=== PATIENT | male | born 1995 | race Caucasian/White ===

== ENCOUNTER 2024-06-19 12:31 | Emergency (ER) | payer OTHER, SELFPAY ==
[2024-06-19 12:34] VITALS: BP 142/62; PULSE 72; RESP 16; TEMP 36.6; O2SAT 100
--- OUTSIDE RECORDS SUMMARY | 2024-06-19 12:38 | XMS_ITS | Clinical Summary ---
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 Assessment & Plan (11/12/2019 3:44 PM CDT): - abnormal protrusion of proximal tibia on R leg - reassured pt this is likely due to healing reaction from his accident - pt refused xray to evaluate - f/u prn Urine frequency 11/12/2019 Assessment & Plan (11/12/2019 3:45 PM CDT): - neg UA, send urine for cx - check labs for STI - will treat empirically for UTI - f/u if sx not improved Cigarette nicotine dependence without complicati on 11/30/2018 Assessment & Plan (12/12/2018 3:15 PM CDT): Smoking 1ppd Not interested in quitting Counseled on cessation >3 minutes Assessment & Plan (11/30/2018 3:29 PM CDT): Smoking 1ppd Not interested in quitting Counseled on cessation >3 minutes Encounters Date Type Department Care Team Description 05/04/2024 8:00 PM CDT - 05/04/2024 9:34 PM CDT Emergency [address] [address] Discharge Disposition: Left without being seen from Last 3 Months Immunizations Immunization Administration Dates Next Due DTP / HiB 06/20/1996,02/18/1995,1994 Hep B, Adolescent or Pediatric 06/20/1996,1994,1994 MMR 06/20/1996 OPV 06/20/1996,02/18/1995,1994 Tdap 11/26/2018 Family History Medical History Relation Name Comments Epilepsy Father Diabetes Sister Relation Name Status Comments Brother Alive Father Alive Mother Alive Sister Alive Social History Tobacco Use Types Packs/Day Years Used Date Smoking Tobacco: Every Day Cigarettes Tobacco Cessation:Ready to Q uit: Yes; Counseling Given: Yes Alcohol Use Standard Drinks/Week Comments Not Currently 0 (1 standard drink = 0.6 oz pur e alcohol) PHQ-2 Answer Date Recorded PHQ-2 Score 0 11/30/2018 Personal Safety Answer Date Recorded Have you ever been in or are you currently in a harmful physical or emotional relationship or is someone making you feel afraid or unsafe? 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 Gender Identity Not on file Sexual Orientation Not on file Obstetrics History Last Filed Vital Signs Vital Sign Reading Time Taken Comments Blood Pressure 107/75 05/04/2024 8:06 PM CDT Pulse 53 05/04/2024 8:06 PM CDT Temperature 36.5 C (97.7 F) 05/04/2024 8:06 PM CDT Respiratory Rate 14 05/04/2024 8:06 PM CDT Oxygen Saturation 99% 05/04/2024 8:06 PM CDT Inhaled Oxygen Concentration - - Weight 57.6 kg (127 lb) 05/04/2024 8:06 PM CDT Height 167.6 cm (5' 6 ) 11/12/2019 2:36 PM CDT Body Mass Index 20.5 11/12/2019 2:36 PM CDT Plan of Treatment Not on file Insurance ANTHEM ACCESS CHOICE AETNA [facility] Care Teams Elevator Serviceman Relationship Specialty Start Date End Date Unknown, Notinfile PCP - General 05/03/24
--- OUTSIDE RECORDS SUMMARY | 2024-06-19 12:38 | XMS_ITS | Continuity of Care Document ---
Author Organization [facility] Address [id number] [place] [address] [place] [address] Phone Care Team Providers Care Tester Waste Disposal Leakage Name Role Phone Hatch OD, Vicente Unavailable Unavailable Procedures Procedure Date Eye Exam & Treatment Refraction Eye Exam & Treatment Advance Directives Directive Yes / No Effective Date File Name No Information Encounters Encounter Description Practice Location Reason(s) For Visit Diagnoses Date Provider Providers Copied on Encounter [facility], [address] [place] [address] [address], [place], [place], [id number], tel:[phone] [facility] No Information [address] Hatch OD Vicente. [address], [place], [place], [facility], [place]. tel:[phone] [facility], [address] [place] [address] [address], [place], [place], [id number], tel:[phone] [facility] No Information 0[address] Last Monica. [address], [place], [place], [facility], [place]. tel:[phone] Family History Family Member Type Diagnosis Age At Onset No Information Payers Payer name Insurance type Covered green party ID Authoriza tion(s) Medicaid [facility] [id number] Social History Type Description Quantity Date Captured Comments Sex Male Smoking Status No Information Chief Complaint And Reason For Visit No Information Reason For Referral Reason For Referral No Information History Of Present Illness Encounter Date Complaint History Of Prese nt Illness No Information Functional Status Date Functional Assessmen t No Information Instructions Date Instruction Additional Infor mation No Information Assessments Type Assessment Date No Information Patient Care Teams Name Effective Dates (start - stop) Status Members No Information
--- OUTSIDE RECORDS SUMMARY | 2024-06-19 12:38 | XMS_ITS | Referral Summary ---
Author Organization [facility] at the Medical Office Building Address [address] [place] [address] Care Team Providers Care Multi Craft Maintenance Technician Name Role Phone Unknown, Notinfile Primary Care Provider Unavail able Encounters Date Type Department Care Team Description 05/04/2024 8:00 PM CDT - 05/04/2024 9:34 PM CDT Emergency [address] [address] Discharge Disposition: Left without being seen from Last 3 Months Allergies No known active allergies Medications No [...] in quitting Counseled on cessation >3 minutes Immunizations Immunization Administration Dates Next Due DTP / HiB 06/20/1996,02/18/1995,1994 Hep B, Adolescent or Pediatric 06/20/1996,1994,1994 MMR 06/20/1996 OPV 06/20/1996,02/18/1995,1994 Tdap 11/26/2018 Social History Tobacco Use Types Packs/Day Years [...] on file 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
[2024-06-19 13:01] LABS: Basophils Percent Auto 0.1 % (0.2-1.2); Eosinophils Percent Auto 0.1 % (0-4.4); Hematocrit 46.2 % (42.0-52.0); Hemoglobin 15.6 g/dL (14.0-18.0); Immature Granulocyte Absolute 0.08 K/mm3 (0.00-0.031); Immature Granulocyte Percent A 0.5 % (0-0.5); Lymphocytes Absolute Auto 1.17 K/mm3 (0.9-3.2); Mean Corpuscular HGB Conc 33.8 g/dl (32-36); Mean Corpuscular Hemoglobin 28.9 pg (26-34); Mean Corpuscular Volume 85.6 fl (80-100); Mean Platelet Volume 10.7 fl (7.4-10.4); Monocytes Absolute Auto 0.5 K/mm3 (0.1-0.6); Monocytes Percent Auto 3.7 % (2.6-8.5); Neutrophils Absolute Auto 12.8 K/mm3 (1.3-6.7); Neutrophils Percent Auto 87.6 % (45.5-73.1); Platelet Count Result 319 k/mm3 (150-375); Red Cell Distribution Width 13.6 % (11.5-14.5); White Blood Count 14.6 K/mm3 (4.5-10.0)
--- NOTE | 2024-06-19 13:03 | ED.GENADULT ---
HPI - General Adult General Chief complaint: Nausea/Vomiting/Diarrhea Stated complaint: Wanting help with Opiate withdrawal Time Seen by Provider: 06/19/24 12:46 History of Present Illness HPI narrative: Elias Richards is a 28-year-old male presents with complaints of opioid withdrawal symptoms. He states that he has he snorted fentanyl for about 4-5 years and he states that he last used about 12-13 hours ago. He complains of nausea vomiting diarrhea abdominal cramping body aches. Related Data Allergies Allergy/AdvReac Type Severity Reaction Status Date / Time No Known Allergies Allergy Unverified 06/19/24 12:32 Review of Systems Review of Systems: All systems reviewed & are unremarkable except as noted in HPI and below Exam Narrative: GENERAL: Well-appearing, well-nourished, and in no acute distress. HEAD: Normocephalic, atraumatic. EYES: PERRLA and EOMI. ENT: Nares clear, no rhinorrhea or epistaxis. Mucous membranes moist. Oropharynx without tonsillar hypertrophy exudate or other lesions. NECK: Supple. No adenopathy or masses. No carotid bruits or JVD CHEST: Clear to auscultation. No respiratory distress. No wheezes rales or rhonchi HEART: Regular rate and rhythm. No murmur heard. Normal peripheral pulses. ABDOMEN: Soft, nontender, nondistended, normal active bowel sounds. EXTREMITIES: Normal range of motion. No edema. SKIN: Warm, dry, no rash. NEURO: No focal deficits. Alert and oriented x3. PSYCH: Normal mood and affect. Course Vital Signs Vital signs: Vital Signs Temperature 36.6 C 06/19/24 12:34 Pulse Rate 72 06/19/24 12:34 Respiratory Rate 16 06/19/24 12:34 Blood Pressure 142/62 H 06/19/24 12:34 Pulse Oximetry 100 06/19/24 12:34 Oxygen Delivery Room Air 06/19/24 12:34 Temperature 36.6 C 06/19/24 12:34 Pulse Rate 72 06/19/24 12:34 Respiratory Rate 16 06/19/24 12:34 Blood Pressure 142/62 H 06/19/24 12:34 Pulse Oximetry 100 06/19/24 12:34 Oxygen Delivery Room Air 06/19/24 12:34 Medical Decision Making [facility] Narrative Medical decision making narrative: 28 y/o male with complaints of opioid withdrawal symptoms hw states he last used 12-13 hours ago he states that he has snorted fentanyl for about 4-5 years. Complains of nausea/vomiting/diarrhea/body aches COWS score is about a 5 at 1300 Patient re-evaluated around 1430 and he is feeling better he is tolerating p.o. will give another L of fluids for hydration we discussed that as long as he is starting to feel better and able to take in p.o. I can discharge him home with the same medications reviewed and appear today with follow-up for recovery. He and his mom were agreeable to this plan and comfortable being discharged home. Medical Records Medical records reviewed: Yes I reviewed the external patient's medical records. Vital Signs Vital Signs: Vital Signs Temperature 36.6 C 06/19/24 12:34 Pulse Rate 72 06/19/24 12:34 Respiratory Rate 16 06/19/24 12:34 Blood Pressure 142/62 H 06/19/24 12:34 Pulse Oximetry 100 06/19/24 12:34 Oxygen Delivery Room Air 06/19/24 12:34 Temperature 36.6 C 06/19/24 12:34 Pulse Rate 72 06/19/24 12:34 Respiratory Rate 16 06/19/24 12:34 Blood Pressure 142/62 H 06/19/24 12:34 Pulse Oximetry 100 06/19/24 12:34 Oxygen Delivery Room Air 06/19/24 12:34 Vitals reviewed by me. Lab Data Lab results reviewed: Yes I reviewed the patient's lab results. 06/19/24 12:55 06/19/24 12:55 Labs: Lab Results 06/19/24 06/19/24 Range/Units 12:55 13:15 WBC 14.6 H (4.5-10.0) K/mm3 RBC 5.40 (4.6-6.20) M/mm3 Hgb 15.6 (14.0-18.0) g/dL Hct 46.2 (42.0-52.0) % MCV 85.6 (80-100) fl MCH 28.9 (26-34) pg MCHC 33.8 (32-36) g/dl RDW 13.6 (11.5-14.5) % Plt Count 319 (150-375) k/mm3 MPV 10.7 H (7.4-10.4) fl Immature Gran % (Auto) 0.5 (0-0.5) % Neut % (Auto) 87.6 H (45.5-73.1) % Lymph % (Auto) 8.0 L (18.3-44.2) % Coleman % (Auto) 3.7 (2.6-8.5) % Eos % (Auto) 0.1 (0-4.4) % Baso % (Auto) 0.1 L (0.2-1.2) % Lymph # (Auto) 1.17 (0.9-3.2) K/mm3 Coleman # (Auto) 0.5 (0.1-0.6) K/mm3 Eos # (Auto) 0.0 (0-0.3) K/mm3 Baso # (Auto) 0.0 (0.0-0.1) K/mm3 Abs Immat Gran (auto) 0.08 H (0.00-0.031) K/mm3 Absolute Neuts (auto) 12.8 H (1.3-6.7) K/mm3 Absolute Nucleated RBC 0.000 (0.0-0.012) K/mm3 Nucleated RBC % 0.0 (0.0-0.2) % Sodium 145 (137-145) mmol/L Potassium 3.2 L (3.4-5.0) mmol/L Chloride 103 (98-107) mmol/L Carbon Dioxide 26 (22-30) mmol/L Anion Gap 16 H (4-12) mmol/L BUN 12 (9-20) mg/dL Creatinine 0.77 (0.7-1.3) mg/dL Estim Creat Clear Calc 88 ml/min Estimated GFR > 60 (59 - ) Glucose 119 H (65-110) mg/dL Calcium 9.9 (8.4-10.2) mg/dL Total Bilirubin 0.8 (0.2-1.3) mg/dL AST 23 (17-59) U/L ALT 23 (6-50) U/L Alkaline Phosphatase 87 (38-126) U/L Total Protein 9.0 H (6.3-8.2) g/dL Albumin 5.3 H (3.5-5.1) g/dL Lipase 156 (23-300) U/L Urine Color Dark yellow (Yellow) Urine Appearance Turbid H (Clear) Urine pH 5.5 (5.0-9.0) Ur Specific [place] 1.035 (1.001-1.035) Urine Protein 2+ H (Negative) mg/dL Urine Glucose (UA) Negative (Negative) mg/dL Urine Ketones 4+ H (Negative) mg/dL Ur Blood (Man) Negative (Negative) Urine Nitrate Negative (Negative) Urine Bilirubin 2+ H (Negative) Urine Urobilinogen 1.0 (<2.0) mg/dL Add Ur Microanalysis Reviewed Leukocyte Esterase Rfl Trace H (Negative) KAYLA/UL Urine RBC 0-2 (0-2) /hpf Urine WBC 0-5 (0-3) /hpf Ur Squamous Epith Cells Occasional (Few) /hpf Urine Bacteria None seen /hpf Urine Casts 3-5 Urine Opiates Screen Negative (Negative) Urine Methadone Screen Negative (Negative) Ur Barbiturates Screen Negative (Negative) Ur Phencyclidine Scrn Negative (Negative) Ur Amphetamine Screen Negative (Negative) U Benzodiazepines Scrn Negative (Negative) Urine Cocaine Screen Positive A (Negative) U Cannabinoids Screen Positive A (Negative) Discharge Plan Discharge Clinical Impression: Drug abuse, Cocaine abuse Patient Disposition: Home Condition: Stable Instructions: Antibiotic Form Additional Instructions: Continues to take the Reglan as needed for nausea continue to take the famotidine once daily. You may also take the dicyclomine as needed for abdominal cramping. Continue to push oral hydration please establish care with a primary care provider. You may also call our out reach coordinator as provided phone number is [phone]. As always if he develops any worsening symptoms she may return to the emergency department. Patient Language: Peruvian Prescriptions: New metoclopramide HCl [Reglan] 10 mg tablet 10 mg PO Q6H PRN (Reason: nausea and vomiting) Qty: 20 0RF dicyclomine 10 mg capsule 10 mg PO TID Qty: 20 0RF famotidine 20 mg tablet 20 mg PO DAILY Qty: 30 0RF Follow-up/Referrals: UNKNOWN,DOCTOR [Primary Care Provider] - Time of Disposition: 14:56
[2024-06-19] MEDS: LOPERAMIDE HCL 2 MG CAPSULE PO (13:10)
[2024-06-19] MEDS: diphenhydrAMINE HCl INJ 50 MG/ML VIAL 25 MG IV PUSH (13:10)
[2024-06-19] MEDS: KETOROLAC 30 MG/ML VIAL (*BKC) IV PUSH (13:10)
[2024-06-19] MEDS: METOCLOPRAMIDE HCL INJ 10 MG/2 ML VIAL IV PUSH (13:10)
[2024-06-19] MEDS: DICYCLOMINE HCL INJ 20 MG/2 ML VIAL IM (13:10)
[2024-06-19] MEDS: SODIUM CHLORIDE 0.9% IV 1,000 ML 999 ML IV CONT (13:10)
[2024-06-19 13:11] LABS: Alanine Aminotransferase 23 U/L (6-50); Albumin Level 5.3 g/dL (3.5-5.1); Alkaline Phosphatase 87 U/L (38-126); Anion Gap 16 mmol/L (4-12); Aspartate Amino Transferase 23 U/L (17-59); Bilirubin,Total 0.8 mg/dL (0.2-1.3); Blood Urea Nitrogen 12 mg/dL (9-20); Calcium 9.9 mg/dL (8.4-10.2); Carbon Dioxide 26 mmol/L (22-30); Chloride 103 mmol/L (98-107); Estimated CRCL calculation 88 ml/min; Estimated Glomerular Filt Rate > 60; Glucose 119 mg/dL (65-110); Lipase 156 U/L (23-300); Potassium 3.2 mmol/L (3.4-5.0); Sodium 145 mmol/L (137-145)
--- OUTSIDE RECORDS SUMMARY | 2024-06-19 13:15 | XMS_ITS | Clinical Summary ---
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 Gender Identity Not on file Sexual Orientation Not on file Plan of Treatment Health Maintenance Due Date Last Done Comments Hepatitis C Virus (HCV) Screening 1994 Influenza Immunization (#1) 2023 SARS-COV-2 Immunization ( season) 2023 Respiratory Syncytial Virus (RSV) Immunization (Adult) (1 - 1-dose 75+ series) 2069 Hepatitis B Immunization Completed 997, 1994, 1994 DTaP/Tdap/Td Immunization Discontinued 2018, 06/20/1996, 02/18/1995, Additional history exists TdaP Immunization Completed 11/26/2018 Meningococcal Immunization (ACWY) Aged Out No longer eligible based on patient's age to complete this topic Pneumococcal Immunization Combined Aged Out No longer eligible based on patient's age to complete this topic Rotavirus Immunization Aged Out No lo nger eligible based on patient's age to complete this topic
--- OUTSIDE RECORDS SUMMARY | 2024-06-19 13:15 | XMS_ITS | Referral Summary ---
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
--- OUTSIDE RECORDS SUMMARY | 2024-06-19 13:15 | XMS_ITS | Continuity of Care Document ---
Author Organization [facility] Address [address] [place] [address] [place] [address] Phone Care Team Providers Care Quality Control Scientist Name Role Phone Hatch OD, Vicente Unavailable Unavailable Procedures Procedure Date Eye Exam & Treatment Refraction Eye Exam & Treatment Advance Directives Directive Yes / No Effective Date File Name No Information Encounters Encounter Description Practice Location Reason(s) For Visit Diagnoses Date Provider Providers Copied on Encounter [facility], [address] [place] [address] [address], [place], [place], [id number], tel:[phone] [facility] No Information 2200 9 Hatch OD Vicente. [address], [place], [place], [facility], [place]. tel:[phone] [facility], [address] [place] [address] [address], [place], [place], [id number], tel:[phone] [facility] No Information 0200 7 Last Monica. [address], [place], [place], [facility], [place]. tel:[phone] Family History Family Member Type Diagnosis Age At Onset No Information Payers Payer name Insurance type Covered alliance party ID Authoriza tion(s) Medicaid [facility] [id number] Social History Type Description Quantity Date Captured [...]
--- OUTSIDE RECORDS SUMMARY | 2024-06-19 13:15 | XMS_ITS | Clinical Summary ---
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
[2024-06-19] MEDS: POTASSIUM CHLORIDE 20 MEQ PACKET (FOR LIQUID) 40 MEQ PO (13:42)
[2024-06-19 13:45] LABS: Add Urine Microscopic? YES; Appearance Urine Turbid (Clear); Bacteria Urine None Seen /hpf; Bilirubin Urine 2+ (Negative); Blood Urine Negative (Negative); Color Urine Dark Yellow (Yellow); Glucose Urine UA Negative (Negative); Ketones Urine 4+ mg/dL (Negative); Leukocyte Esterase Ur Trace LEU/UL (Negative); Need Manual Microscopic Reviewed; Nitrate Urine Negative (Negative); Protein Urine 2+ mg/dL (Negative); RBC Urine 0-2 /hpf (0-2); Specific Grav Ur 1.035 (1.001-1.035); Squamous Epithelial Cell Urine Occasional /hpf (Few); WBC Urine 0-5 /hpf (0-3); pH Urine 5.5 (5.0-9.0)
[2024-06-19 13:57] LABS: Amphetamine Screen Urine Negative (Negative); Barbiturate Screen Urine Negative (Negative); Benzodiazepines Screen Urine Negative (Negative); Cannabinoid Screen Urine Positive (Negative); Cocaine Screen Urine Positive (Negative); Methadone Screen Urine Negative (Negative); Opiate Screen Urine Negative (Negative); Phencyclidine Screen Urine Negative (Negative)
[2024-06-19] MEDS: LACTATED RINGERS 1,000 ML 999 ML IV CONT (14:21)
== END 2024-06-19 15:33 | disposition home or self-care (01) ==
PROVIDERS: Preventive Medicine Aerospace Medicine; Emergency Provider Nurse Practitioner Family
DX: F14.20 Cocaine dependence, uncomplicated (principal)
CPT/HCPCS: 36415; 80053; 80307; 81001; 83690; 85025; 96361; 96372; 96374; 96375; 99284; A9270; J0500; J1200; J1885; J2765; J7030; J7120